=== PATIENT | male | born 1940 | race Two or more races ===

== ENCOUNTER → 2022-05-29 13:28 | Outpatient (CLI) | payer OTHER ==
[~2022-05-29 13:28] MED LIST: BACTRIM DS TAB1 EACH PO; CIPRO750 MG PO; Colace 100MG PO; DIAZEPAM10 MG PO; MEDROLPACK PO; NEURONTIN PO; PERCOCET 5-3251 EACH PO; PERCOCET 5/3251 TAB PO
== END | disposition home or self-care (01) ==
LOC: LAB 13:28
PROVIDERS: ATTEND Orthopaedic Surgery Orthopaedic Surgery of the Spine
DX: R07.89 Other chest pain (principal)

== ENCOUNTER 2022-05-30 08:30 | Inpatient (IN) | payer OTHER ==
[~2022-05-30] VITALS: Ht 172.7 cm; Wt 91.6 kg
[~2022-05-30 08:30] MED LIST changes: -BACTRIM DS TAB1 EACH PO; -MEDROLPACK PO; -PERCOCET 5-3251 EACH PO
[2022-06-03] MEDS ORDERED: MEDROLPACK PO (09:54)
[2022-06-03] MEDS ORDERED: BACTRIM DS TAB1 EACH PO (09:54)
[2022-06-03] MEDS ORDERED: PERCOCET 5-3251 EACH PO (09:54)
[2022-06-04] MEDS ORDERED: MEDROLPACK PO (08:47)
[2022-06-04] MEDS ORDERED: NEURONTIN800 MG PO (08:47)
[2022-06-04] MEDS ORDERED: PERCOCET 5-3251 EACH PO (08:47)
[2022-06-04] MEDS ORDERED: COLACE100 MG PO (08:47)
[2022-06-04] MEDS ORDERED: BACTRIM DS TAB1 EACH PO (08:47)
== END 2022-06-05 12:10 | DRG 455 ==
LOC: SURH 06-03 08:30 → PED 06-03 08:55 → O/R 06-03 08:55 → PED 06-03 18:32 → SURH 06-03 21:30 → PED 06-05 12:10
PROVIDERS: ADMIT Orthopaedic Surgery Orthopaedic Surgery of the Spine; ATTEND Orthopaedic Surgery Orthopaedic Surgery of the Spine
PROC: 0SG3071 Fusion of Lumbosacral Joint with Autologous Tissue Substitute, Posterior Approach, Posterior Column, Open Approach (ICD-10-PCS; 2022-06-03)
PROC: 0SP004Z Removal of Internal Fixation Device from Lumbar Vertebral Joint, Open Approach (ICD-10-PCS; 2022-06-03)
PROC: 0ST40ZZ Resection of Lumbosacral Disc, Open Approach (ICD-10-PCS; 2022-06-03)
PROC: 07DR0ZZ Extraction of Iliac Bone Marrow, Open Approach (ICD-10-PCS; 2022-06-03)
PROC: XRGD0R7 Fusion of Lumbosacral Joint using Custom-Made Anatomically Designed Interbody Fusion Device, Open Approach, New Technology Group 7 (ICD-10-PCS; principal; 2022-06-03 21:30)
DX: M48.07 Spinal stenosis, lumbosacral region (principal); M51.17 Intervertebral disc disorders with radiculopathy, lumbosacral region; M43.17 Spondylolisthesis, lumbosacral region; M51.36 Other intervertebral disc degeneration, lumbar region